=== PATIENT | female | born 1965 | race Caucasian/White ===

== ENCOUNTER 2017-01-05 10:48 | Emergency (ER) | payer OTHER ==
[2017-01-05 11:32] VITALS: BP 136/81
--- NOTE | 2017-01-05 15:31 | UC ---
I, Oh,Soohyun, scribed for Jhoana Keiht DO on 01/05/17 at 1228 . Lower Extremity/Ankle HPI - HPI Summary HPI Summary: This 51 y/o female presents to [facility] for bruising across BL thighs and 4/10 BLE pain since about a week ago. Pt was walking her 60-lb dog when her dog got excited and pull her across the iron bench and cause her to fall forward on the grass. She decided to visit [facility] today when she became concerned about persistent pain and ecchymosis. Negative SOB, CP, LISA, or any weakness. Pt denies any LOC or head injury "I didn't hit my head". PMHx includes fibromyalgia , IBS, migraine, and PVCs - History of Current Complaint Chief Complaint: UCLowerExtremity Stated Complaint: THIGH INJURY Time Seen by Provider: 01/05/17 11:38 Hx Obtained From: Patient, Medical Records Hx Last Menstrual Period: 08/2016 Onset/Duration: Sudden Onset, Still Present Severity Initially: Moderate Severity Currently: Moderate Pain Intensity: 4 Pain Scale Used: 0-10 Numeric Aggravating Factor(s): Nothing Alleviating Factor(s): Nothing Able to Bear Weight: Yes - Allergies/Home Medications Allergies/Adverse Reactions: Allergies Allergy/AdvReac Type Severity Reaction Status Date / Time Azithromycin [From Zithromax] Allergy Intermediate Joint Pain Verified 01/05/17 11:32 Codeine Allergy Mild n/v Verified 01/05/17 11:32 enviromental Allergy Unknown Unknown Uncoded 01/05/17 11:32 Reaction Details Home Medications: Home Medications Acetaminophen [Acetaminophen Extra Stren] 2 tab PO Q6HR PRN 01/05/17 [History Confirmed 01/05/17] Calcium Carbonate-Mag Hydrox [Rolaids 550-110 mg] 1 chw PO DAILY PRN 01/05/17 [ History Confirmed 01/05/17] Cholecalciferol [Vitamin D-3] 1 tab PO DAILY 01/05/17 [History Confirmed ] Ibuprofen [Advil] 400 mg PO Q6HR PRN 01/05/17 [History Confirmed 01/05/17] Mucle Relaxer 1 tab PO DAILY PRN 01/05/17 [History] Valacyclovir HCl [Valtrex] 2 tab PO BID 01/05/17 [History Confirmed 01/05/17] PMH/Surg Hx/FS Hx/Imm Hx - Additional Past Medical History Additional PMH: Fibromyalgia, IBS Cardiovascular History Of: Reports: Cardiac Disorders - Tachycardia- PVCs Cancer History Of: Denies: Breast Cancer - Surgical History Surgical History: Yes Surgery Procedure, Year, and Place: Cervical Polyps removed - Family History Known Family History: Positive: Diabetes - Positive to mother, Other - Positive MS to mother Negative: Cardiac Disease, Hypertension - Social History Occupation: Employed Full-time Lives: With Family Alcohol Use: Occasionally Alcohol Amount: 1 WEEK OR 2 Substance Use Type: None Smoking Status (MU): Never Smoked Tobacco Have You Smoked in the Last Year: No Review of Systems Constitutional: Negative Skin: Bruising - BLE upper thighs. Pt reports tightness across ecchymosis. Eyes: Negative ENT: Negative Respiratory: Negative Cardiovascular: Negative Gastrointestinal: Negative Genitourinary: Negative Motor: Negative Neurovascular: Negative Musculoskeletal: Negative Neurological: Negative Psychological: Negative All Other Systems Reviewed And Are Negative: Yes Physical Exam Triage Information Reviewed: Yes Appearance: Well-Appearing, No Pain Distress, Well-Nourished Vital Signs: Initial Vital Signs Temp 99.1 F 01/05/17 11:23 Pulse 92 01/05/17 11:23 Resp 16 01/05/17 11:23 BP 136/81 01/05/17 11:23 Pulse Ox 97 01/05/17 11:23 Vital Signs Reviewed: Yes Eyes: Positive: Conjunctiva Clear. Negative: Discharge ENT: Positive: Hearing grossly normal. Negative: Muffled/hoarse voice Neck exam: Normal Neck: Positive: Supple Respiratory: Positive: Lungs clear, Normal breath sounds, No respiratory distress Cardiovascular: Positive: RRR, No Murmur, Pulses Normal Musculoskeletal: Positive: Strength Intact, ROM Intact, No Edema, Other: - neg blackburn's, no calf tenderness Neurological: Positive: Muscle Tone Normal Psychological: Positive: Age Appropriate Behavior Skin: Positive: Other - Impressive evolving ecchymosis across ant aspect of bl thighs. Rt: 95p96co. Lt: 6x6cm. Hematoma, long and narrow palpated in the center of the bruise on the rt thigh. Lower Extremity Course/Dx - Course Course Of Treatment: Medication list reviewed. VS reviwed. - Differential Dx/Diagnosis Differential Diagnosis/HQI/PQRI: Contusion, DVT, Sprain Provider Diagnoses: hematoma, contusion Discharge - Discharge Plan Condition: Stable Disposition: HOME Patient Education Materials: Hematoma (ED) Referrals: Juany Stewart MD [Primary Care Provider] - If Needed The documentation as recorded by the Kayode mondragon Soohyun accurately reflects the service I personally performed and the decisions made by , Jhoana Keith DO.
== END 2017-01-05 12:39 | disposition home or self-care (01) ==
LOC: UCEAST 10:48
DX: S70.12XA Contusion of left thigh, initial encounter (principal); S70.11XA Contusion of right thigh, initial encounter; W01.0XXA Fall on same level from slipping, tripping and stumbling without subsequent striking against object, initial encounter; Y93.9 Activity, unspecified; Y99.9 Unspecified external cause status
CPT/HCPCS: 99211; G0463

== ENCOUNTER 2017-11-17 22:30 | Emergency (ER) | payer OTHER ==
[2017-11-17] MEDS ORDERED: Al Hydrox/Mg Hydrox/Simet LIQ* 30 ML UDC PO ONE (23:38)
[2017-11-17] MEDS ORDERED: Lidocaine 2% VISCOUS* 15 ML UDC PO ONE (23:38)
[2017-11-17] MEDS ORDERED: ALPRAZolam TAB* 0.5 MG PO ONE (23:40)
[2017-11-17 23:42] LABS: ABS Basophils 0.1 10^3/ul (0-0.2); ABS Eosinophils 0.1 10^3/ul (0-0.6); ABS Lymphocytes 1.8 10^3/ul (1.0-4.8); ABS Monocytes 0.8 10^3/ul (0-0.8); ABS Neutrophils 4.6 10^3/ul (1.5-7.7); ABS Nucleated RBC 0 10^3/ul; Eosinophil % 1.3 % (0-6); Hematocrit 36 % (35-47); Hemoglobin 12.2 g/dl (12.0-16.0); Lymphocyte % 24.4 % (25-47); Mean Corpuscular HGB Conc 34 g/dl (31-36); Mean Corpuscular Hemoglobin 30 pg (27-31); Mean Corpuscular Volume 88 fL (80-97); Mean Platelet Volume 7.6 um3 (7.4-10.4); Nucleated Red Blood Cells % 0; Platelet Count 259 10^3/ul (150-450); Red Blood Count 4.11 10^6/ul (4.0-5.4); Red Cell Distribution Width 14 % (10.5-15); White Blood Count 7.3 10^3/ul (3.5-10.8)
[2017-11-17 23:53] LABS: INR 0.94 (0.77-1.02)
[2017-11-17 23:54] LABS: EGFR Non-African American 70.5 (>60)
--- NOTE | 2017-11-18 00:46 | ED ---
Candelario Sharp Tecjoon scribgrover for Martha Kaur MD on 11/17/17 at 2348 . Throat Pain/Nasal Congestion - HPI Summary HPI Summary: This patient is a 52 year old female BIBA to [facility] accompanied by with a chief complaint of throat pain since approx. 3 hours ago. Patient states she feels discomfort coming down his throat to shoulder and stomach. Patient was just sitting and watching TV. Patient states the symptoms are similar to past episodes of GERD, but not do this extent. At time of exam, patient states the sx have become less prominent. The pain is rated 1/10 in severity. Symptoms aggravated by deep breaths. Symptoms alleviated by nothing. 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 Patient additionally reports SOB. Patient has a hx of panic attack and GERD. - History of Current Complaint Chief Complaint: EDChestWallPain Time Seen by Provider: 11/17/17 23:32 Hx Obtained From: Patient Onset/Duration: Lasting Hours, Still Present Severity: Mild Cough: None - Allergies/Home Medications Allergies/Adverse Reactions: Allergies Allergy/AdvReac Type Severity Reaction Status Date / Time azithromycin Allergy Joint Pain Verified 11/17/17 22:45 ciprofloxacin Allergy Nausea And Verified 11/17/17 22:45 Vomiting codeine Allergy Nausea And Verified 11/17/17 22:45 Vomiting enviromental Allergy Unknown Unknown Uncoded 01/05/17 11:32 Reaction Details PMH/Surg Hx/FS Hx/Imm Hx Previously Healthy: No GI History: Reports: Hx Gastroesophageal Reflux Disease Opthamlomology History: Denies: Hx Legally Blind EENT History: Denies: Hx Deafness - Cancer History Hx Chemotherapy: No Hx Radiation Therapy: No - Surgical History Surgery Procedure, Year, and Place: Cervical Polyps removed Infectious Disease History: No Infectious Disease History: Denies: Traveled Outside the [place] in Last 30 Days - Family History Known Family History: Positive: Diabetes - Positive to mother, Other - Positive MS to mother Negative: Cardiac Disease, Hypertension - Social History Lives: With Family Alcohol Use: Rare Alcohol Amount: 1 WEEK OR 2 Hx Substance Use: No Substance Use Type: Reports: None Hx Tobacco Use: No Smoking Status (MU): Never Smoked Tobacco Have You Smoked in the Last Year: No Review of Systems Negative: Fever Positive: Sore Throat Positive: Shortness Of Breath Positive: Abdominal Pain Positive: Other - shoulder pain All Other Systems Reviewed And Are Negative: Yes Physical Exam - Summary Physical Exam Summary: VITAL SIGNS: Reviewed. GENERAL: Patient is a well-developed and nourished female who is lying comfortable in the stretcher. Patient is not in any acute respiratory distress. HEAD AND FACE: No signs of trauma. No ecchymosis, hematomas or skull depressions. No sinus tenderness. EYES: PERRLA, EOMI x 2, No injected conjunctiva, no nystagmus. EARS: Hearing grossly intact. Ear canals and tympanic membranes are within normal limits. MOUTH: Oropharynx within normal limits. NECK: Supple, trachea is midline, no adenopathy, no JVD, no carotid bruit, no c- spine tenderness, neck with full ROM. CHEST: Symmetric, no tenderness at palpation LUNGS: Clear to auscultation bilaterally. No wheezing or crackles. CVS: Regular rate and rhythm, S1 and S2 present, no murmurs or gallops appreciated. ABDOMEN: Soft, non-tender. No signs of distention. No rebound no guarding, and no masses palpated. Bowel sounds are normal. EXTREMITIES: FROM in all major joints, no edema, no cyanosis or clubbing. NEURO: Alert and oriented x 3. No acute neurological deficits. Speech is normal and follows commands. SKIN: Dry and warm Triage Information Reviewed: Yes Vital Signs On Initial Exam: Initial Vitals Temp Pulse Resp BP Pulse Ox 99.3 F 105 17 154/96 97 11/17/17 22:38 11/17/17 22:38 11/17/17 22:38 11/17/17 22:38 11/17/17 22:38 Vital Signs Reviewed: Yes Diagnostics - Vital Signs Vital Signs Temp Pulse Resp BP Pulse Ox 11/17/17 22:47 107 14 99 11/17/17 22:45 154/96 11/17/17 22:38 99.3 F 105 17 154/96 97 - Laboratory Result Diagrams: 11/17/17 23:25 11/17/17 23:25 Lab Statement: Any lab studies that have been ordered have been reviewed, and results considered in the medical decision making process. - Radiology CXR Xray Interpretation: No Acute Changes - CXR reveals, per radiologist, IMPRESSION : NO ACUTE PROCESS. ED physician has reviewed this radiology report. Radiology Interpretation Completed By: Radiologist - EKG 2339 Cardiac Rate: NL EKG Rhythm: Sinus Rhythm - 88 BPM EKG Interpretation: Normal axis, normal interval, no ischemic changes. EENT Course/Dx - Course Course Of Treatment: This patient is a 52 year old female BIBA to [facility] accompanied by with a chief complaint of throat pain since approx. 3 hours ago. Patient states she feels discomfort coming down his throat to shoulder and stomach. Patient was just sitting and watching TV. An EKG, taken 2338, reveals NSR (88 BPM), Normal axis, normal interval, no ischemic changes. CXR reveals, per radiologist, IMPRESSION: NO ACUTE PROCESS. ED physician has reviewed this radiology report. Bloodwork Obtained. Test results with no significant abnormalities. In the ED course the patient was given Lidocaine, Xanax, Al Hydrox/Mg Hydrox/Simet. Patient will be discharged with a dx of atypical chest pain. Patient is advised to follow up with PCP in 3 days. The patient is agreeable with this plan. - Diagnoses Provider Diagnoses: Atypical chest pain Discharge - Sign-Out/Discharge Documenting (check all that apply): Discharge - Discharge Plan Condition: Stable Disposition: HOME Patient Education Materials: Chest Pain (ED) Referrals: Juany Stewart MD [Primary Care Provider] - 3 Days Additional Instructions: Return to ED for any new or worsening symptoms. The documentation as recorded by the Candelario mondragon Tecjoon accurately reflects the service I personally performed and the decisions made by Natasha sanders Abdul, MD.
[2017-11-18 00:56] VITALS: BP 113/68
--- NOTE | 2017-11-18 06:44 | RAD ---
INDICATION: Chest pain. COMPARISON: There are no prior studies available for comparison. TECHNIQUE: A portable view of the chest was obtained. FINDINGS: Cardiac and mediastinal contours appear to be within normal limits. The lungs are clear. No pleural effusion is seen. IMPRESSION: NO EVIDENCE FOR ACUTE DISEASE.
== END 2017-11-18 01:14 | disposition home or self-care (01) ==
LOC: ED 22:30
DX: J02.9 Acute pharyngitis, unspecified (principal); R06.02 Shortness of breath; R10.9 Unspecified abdominal pain; M25.519 Pain in unspecified shoulder; R07.89 Other chest pain
CPT/HCPCS: 36415; 71045; 80053; 83605; 84484; 85025; 85379; 85610; 85730; 93005; 99283; A9270-GY

== ENCOUNTER 2018-06-19 16:32 | Emergency (ER) | payer OTHER ==
--- NOTE | 2018-06-19 17:38 | ED ---
Abdominal Pain/Female - HPI Summary HPI Summary: This pt is a 52 y/o female presenting to [facility] c/o upper abd pain for the past couple of weeks. Pt reports she has been having blood with stools every time, describes as vik in color. She has not noticed blood in the stool, just in the water. Pt notes she was diagnosed with costochondritis and was placed on Ibuprofen q6h for a few days by her PCP. She also had an ultrasound done 5 days ago that resulted normal. She states this made her pain worse and her pain is now located on the upper abdomen. Pt describes constant dull ache "like a fist. " Additionally reports nausea, decreased appetite, recent weight loss. Her pain is aggravated with eating and alleviated with sucralose. Denies vomiting, fever , chest pain, SOB, urinary symptoms, rectal pain. PMHx includes fibromyalgia, IBS, costochondritis. She notes her last endoscopy and colonoscopy was around 2010 that was normal. Allergic to azithromycin, ciprofloxacin, codeine. - History of Current Complaint Chief Complaint: EDGIBleed Stated Complaint: ABD PAIN/BLOOD IN STOOL Time Seen by Provider: 06/19/18 17:28 Hx Obtained From: Patient Hx Last Menstrual Period: 08/2016 Onset/Duration: Lasting Days, Still Present Timing: Days Severity Currently: Mild Pain Intensity: 3 Pain Scale Used: 0-10 Numeric Location: Other - upper abd Radiates: No Character: Dull, Other: - "like a fist" Aggravating Factor(s): Nothing Alleviating Factor(s): Nothing Associated Signs and Symptoms: Positive: Nausea. Negative: Fever, Chest Pain, Urinary Symptoms, Vomiting, Other: - rectal pain Allergies/Adverse Reactions: Allergies Allergy/AdvReac Type Severity Reaction Status Date / Time azithromycin Allergy Joint Pain Verified 06/19/18 16:46 ciprofloxacin Allergy Nausea And Verified 06/19/18 16:46 Vomiting codeine Allergy Nausea And Verified 06/19/18 16:46 Vomiting enviromental Allergy Unknown Unknown Uncoded 06/19/18 16:46 Reaction Details PMH/Surg Hx/FS Hx/Imm Hx Endocrine/Hematology History: Denies: Hx Diabetes Cardiovascular History: Denies: Hx Hypertension, Hx Pacemaker/ICD GI History: Reports: Hx Gastroesophageal Reflux Disease History: Denies: Hx Renal Disease Musculoskeletal History: Reports: Hx Fibromyalgia Sensory History: Denies: Hx Legally Blind, Hx Deafness, Hx Hearing Aid Opthamlomology History: Denies: Hx Legally Blind Psychiatric History: Denies: Hx Panic Disorder - Cancer History Hx Chemotherapy: No Hx Radiation Therapy: No - Surgical History Surgery Procedure, Year, and Place: Cervical Polyps removed Infectious Disease History: No Infectious Disease History: Denies: Traveled Outside the [place] in Last 30 Days - Family History Known Family History: Positive: Diabetes - Positive to mother, Other - Positive MS to mother Negative: Cardiac Disease, Hypertension - Social History Alcohol Use: Rare Alcohol Amount: 1 WEEK OR 2 Hx Substance Use: No Substance Use Type: Reports: None Hx Tobacco Use: No Smoking Status (MU): Never Smoked Tobacco Have You Smoked in the Last Year: No Review of Systems Constitutional: Other - POS: decreased appetite, recent weight loss Negative: Fever, Chills Negative: Chest Pain Negative: Shortness Of Breath Gastrointestinal: Other - POS: bloody stools Positive: Abdominal Pain, Nausea. Negative: Vomiting, Other - rectal pain Positive: no symptoms reported, see HPI Neurological: Negative All Other Systems Reviewed And Are Negative: Yes Physical Exam - Summary Physical Exam Summary: Appearance: Well appearing, no pain distress Skin: warm, dry, reflects adequate perfusion Head/face: normal Eyes: EOMI, YONY ENT: normal Neck: supple, non-tender Respiratory: CTA, breath sounds present Cardiovascular: RRR, pulses symmetrical Abdomen: epigastric tenderness, soft Rectal Exam: no fissure, no hemorrhoids. Soft brown stool. Bowel: present Musculoskeletal: normal, strength/ROM intact Neuro: normal, sensory motor intact, A&Ox3 Triage Information Reviewed: Yes Vital Signs On Initial Exam: Initial Vitals Temp Pulse Resp BP Pulse Ox 98.7 F 91 17 137/86 100 06/19/18 16:37 06/19/18 16:37 06/19/18 16:37 06/19/18 16:37 06/19/18 16:37 Vital Signs Reviewed: Yes Diagnostics - Vital Signs Vital Signs Temp Pulse Resp BP Pulse Ox 06/19/18 16:37 98.7 F 91 17 137/86 100 - Laboratory Result Diagrams: 06/19/18 17:32 06/19/18 17:32 Lab Statement: Any lab studies that have been ordered have been reviewed, and results considered in the medical decision making process. Abdominal Pain Fem Course/Dx - Course Course Of Treatment: Patient with epigastric discomfort evaluated by a negative outpatient ultrasound. She has also had blood on the stool. Hemoccult here is negative. Hemoglobin is normal. LFTs and lipase are normal. Likely gastritis treated here with IV Protonix, Pepcid and Carafate as caused by patient's outpatient use of ibuprofen. CT scan is pending and patient will be dispositioned following this by the physician assistant paralegal. She does have follow- up with GI doctor Scot in 10 days. - Diagnoses Differential Diagnosis: Positive: Constipation, Gall Bladder Disease, Ovarian Cyst, Pancreatitis, Peptic Ulcer Disease, Other - Gastritis Provider Diagnoses: Epigastric abdominal pain, Acute gastritis Discharge - Sign-Out/Discharge Documenting (check all that apply): Sign-Out Patient Signing out patient TO: Carolyn Upton - Discharge Plan Condition: Stable Referrals: Juany Stewart MD [Primary Care Provider] - - Billing Disposition and Condition Condition: STABLE - Attestation Statements Document Initiated by Scrmarline: Yes Documenting Scribe: Lorenza Betancourt Provider For Whom Stacie is Documenting (Include Credential): Jermaine Hui MD Scribe Attestation: Lorenza Sharp, scribed for Jermaine Hui MD on 06/19/18 at 1900. Scribe Documentation Reviewed: Yes Provider Attestation: The documentation as recorded by the Lorenza mondragon accurately reflects the service I personally performed and the decisions made by , Jermaine Hui MD
[2018-06-19 17:43] LABS: ABS Basophils 0.1 10^3/ul (0-0.2); ABS Eosinophils 0.1 10^3/ul (0-0.6); ABS Lymphocytes 1.9 10^3/ul (1.0-4.8); ABS Monocytes 0.6 10^3/ul (0-0.8); ABS Neutrophils 4.2 10^3/ul (1.5-7.7); ABS Nucleated RBC 0 10^3/ul; Eosinophil % 1.1 % (0-6); Hematocrit 39 % (35-47); Hemoglobin 13.1 g/dl (12.0-16.0); Lymphocyte % 27.5 % (25-47); Mean Corpuscular HGB Conc 33 g/dl (31-36); Mean Corpuscular Hemoglobin 30 pg (27-31); Mean Corpuscular Volume 90 fL (80-97); Mean Platelet Volume 7.6 fL (7.4-10.4); Nucleated Red Blood Cells % 0.1; Platelet Count 296 10^3/ul (150-450); Red Blood Count 4.36 10^6/ul (4.00-5.40); Red Cell Distribution Width 14 % (10.5-15); White Blood Count 6.8 10^3/ul (3.5-10.8)
[2018-06-19] MEDS ORDERED: Sucralfate TAB* 1 GM PO ONE (17:44)
[2018-06-19] MEDS ORDERED: Famotidine TAB* 20 MG PO ONE (17:44)
[2018-06-19] MEDS ORDERED: Pantoprazole IV* 40 MG IV ONE (17:45)
[2018-06-19 17:49] LABS: INR 0.97 (0.77-1.02)
[2018-06-19 18:04] LABS: EGFR Non-African American 77.9 (>60)
[2018-06-19] MEDS ORDERED: Iohexol 300* (CONTRAST) 10 ML SDV IV ONE (18:49)
--- NOTE | 2018-06-19 19:38 | ED ---
Progress - Progress Note Progress Note: patient signed out by dr hui pending CT CT shows: IMPRESSION: No acute intra-abdominal abnormality. Re-Evaluation - Re-Evaluation First Eval Re-Evaluation Time: 20:54 Change: Unchanged Comment: no pain at the moment Course/Dx - Course Course Of Treatment: Patient with epigastric discomfort evaluated by a negative outpatient ultrasound. She has also had blood on the stool. Hemoccult here is negative. Hemoglobin is normal. LFTs and lipase are normal. Likely gastritis treated here with IV Protonix, Pepcid and Carafate as caused by patient's outpatient use of ibuprofen. CT scan shows no acute findings. discussed that patient is currently on protonix and carafate that just started a couple days ago so will have continue such. patient states is having issues with constipation to so will place on mirlax. patient has follow up with GI already. patient understand and agrees with plan. - Diagnoses Provider Diagnoses: Epigastric abdominal pain, Acute gastritis Discharge - Sign-Out/Discharge Documenting (check all that apply): Patient Departure, Receiving Sign-Out Receiving patient FROM: Jermaine Hui - Discharge Plan Condition: Good Disposition: HOME Prescriptions: Polyethylene Glycol 3350* [Miralax*] 17 gm PO DAILY #14 packet Patient Education Materials: Gastritis (ED) Referrals: Juany Stewart MD [Primary Care Provider] - Additional Instructions: continue omeprazole and sulfracate as prescribed use miralax 1 packet daily with 8 ounces of water stop ibuprofen keep follow up with GI Return to ED if develop any new or worsening symptoms - Billing Disposition and Condition Condition: GOOD Disposition: Home
[2018-06-19 21:03] VITALS: BP 128/87
[2018-06-19 21:05] LABS: Urine Appearance Clear; Urine Blood 2+ (Negative); Urine Color Colorless; Urine Ketones Negative (Negative); Urine Protein Negative (Negative); Urine Red Blood Cell Trace(0-2/hpf) (Absent); Urine Specific Gravity 1.027 (1.010-1.030); Urine Urobilinogen Negative (Negative); Urine White Blood Cell Absent (Absent)
== END 2018-06-19 21:07 | disposition home or self-care (01) ==
LOC: ED 16:32
DX: R10.13 Epigastric pain (principal); K29.70 Gastritis, unspecified, without bleeding; Z88.1 Allergy status to other antibiotic agents; Z88.5 Allergy status to narcotic agent
CPT/HCPCS: 36415; 74177; 80053; 81003; 81015; 82272; 83605; 83690; 85025; 85610; 86140; 96374; 99283; A9270-GY; Q9967

== ENCOUNTER 2018-11-02 10:58 | Day surgery (SDC) | payer OTHER ==
[~2018-11-02 10:58] MED LIST: Buffered Lidocaine 1% SYRIN* 1 ML/SYRINGE INTRADERM ONE; Lactated Ringers 1000 ML Bag* 1,000 ML IV SCH
[2018-11-02 12:18] LABS: Hematocrit 37 % (33-41); Hemoglobin 12.2 g/dL (12.0-16.0); Mean Corpuscular HGB Conc 33 g/dL (31-36); Mean Corpuscular Hemoglobin 29 pg (27-31); Mean Corpuscular Volume 88 fL (80-97); Mean Platelet Volume 7.9 fL (7.4-10.4); Platelet Count 247 10^3/uL (150-450); Red Blood Count 4.27 10^6 /uL (3.70-4.87); Red Cell Distribution Width 14 % (10.5-15); White Blood Count 5.9 10^3/uL (3.5-10.8)
[2018-11-02] MEDS ORDERED: fentaNYL* 50 MCG/ML 2 ML VIAL (100 MCG VIAL) ONE (13:27)
[2018-11-02] MEDS ORDERED: Midazolam* 1 MG/ML 2 ML VIAL (2 MG) ONE (13:27)
[2018-11-02] MEDS ORDERED: Propofol* 10 MG/ML 20 ML BTL ONE (13:27)
[2018-11-02] MEDS ORDERED: Ketorolac INJ* 30 MG/ML 1 ML VIAL ONE (13:58)
[2018-11-02] MEDS ORDERED: Ondansetron INJ* 2 MG/ML VIAL ONE (13:58)
[2018-11-02] MEDS ORDERED: Acetaminophen TAB* 325 MG PO PRN (14:26)
[2018-11-02] MEDS ORDERED: oxyCODONE/Acetamin 5/325 MG* TAB PO PRN (14:27)
[2018-11-02] MEDS ORDERED: Lactated Ringers 1000 ML Bag* 1,000 ML IV SCH (15:00)
[2018-11-02] MEDS ORDERED: Acetaminophen TAB* 325 MG ONE (15:22)
[2018-11-02 16:13] VITALS: BP 121/76
--- NOTE | 2018-11-02 20:45 | OP ---
AMENDED REPORT NOW INCLUDES DATE OF OPERATION - ESIGNED BEFORE ADJUSTMENT * CC: [facility], Dr. Gold * DATE OF OPERATION: 11/02/18 - [facility] DATE OF : 67 SURGEON: Marjan Gold MD ANESTHESIOLOGIST: Dr. Alatorre. ANESTHESIA: General endotracheal anesthesia. PRE-OP DIAGNOSES: Irregular vaginal bleeding, endometrial polyp. POST-OP DIAGNOSES: Irregular vaginal bleeding, endometrial polyp. OPERATIVE PROCEDURE: Dilation, hysteroscopy, curettage, MyoSure polypectomy. ESTIMATED BLOOD LOSS: Minimal, less than 20 cc. FINDINGS: Small anteverted uterus, midline. Small midline cervix. No gross abnormalities noted. There is a small endometrial polyp in front of the left tubal ostia that looked just under a centimeter in length and approx 0.5 mm in width. Otherwise, the endometrium appeared atrophic. No adnexal masses palpated. COMPLICATIONS: None. COUNTS: Sponge, lap, and needle counts were correct x2. CONDITION: The patient was brought to the recovery room, awake and in stable condition. DESCRIPTION OF PROCEDURE: The patient was brought to the operating room. When general anesthesia was found to be adequate, the patient was prepped and draped in the usual sterile fashion in the dorsal lithotomy position. Time-out was performed. Exam under anesthesia was performed with the above findings noted. Weighted speculum was placed in the vagina and the anterior lip of the cervix was grasped with a single-tooth tenaculum and the cervix was gently and easily dilated with graduated Guevara dilators. The smaller MyoSure scope was used. A small polyp was seen in front of the left tubal ostia. This was removed with the MyoSure LITE. The remainder of the endometrium appeared atrophic. Curettage was performed. Endometrial curettings were sent to Pathology along with the endometrial polyp from the polypectomy. The single-tooth tenaculum was removed from the anterior lip of the cervix. Excellent hemostasis was noted. All instruments removed from the vagina. The patient tolerated the procedure well. Sponge count was correct x2 and the patient was brought to recovery room, awake and in stable condition. [id number]/[facility] #: [id number] [facility]
== END 2018-11-02 16:16 | disposition home or self-care (01) ==
LOC: OR 10:58
PROVIDERS: ATTEND Obstetrics & Gynecology
DX: N92.6 Irregular menstruation, unspecified (principal); N84.0 Polyp of corpus uteri; I10 Essential (primary) hypertension; K58.9 Irritable bowel syndrome, unspecified; M79.7 Fibromyalgia
CPT/HCPCS: 36415; 81025; 85027; 86850; 86900; 86901; 88305; A9270-GY; J1885; J2250; J2405; J2704; J3010